=== PATIENT | male | born 1935 | race Caucasian/White ===

== ENCOUNTER 2019-01-27 07:38 | Observation (INO) | payer BC ==
[~2019-01-27] VITALS: Ht 166.4 cm; Wt 68.1 kg
[2019-01-27] VITALS (36 sets, daily range): BP systolic 101–143; BP diastolic 55–79; PULSE 46–69; RESP 11–18; Ht 166.4 cm; Wt 68.1 kg
[~2019-01-27 07:38] MED LIST: CIPROFLOXACIN 400 MG in D5W 200 ML IVPB SCH
[2019-01-27] MEDS ORDERED: TAMS-14 PO (08:25)
[2019-01-27] MEDS ORDERED: PROP40TA4 PO (08:26)
[2019-01-27] MEDS ORDERED: SERT25TA83 PO (08:26)
[2019-01-27] MEDS ORDERED: FINA5TAB4 PO (08:27)
[2019-01-27] MEDS ORDERED: CLON1TAB13 PO (08:27)
[2019-01-27] MEDS ORDERED: LORA10TA3 PO (08:28)
--- NOTE | 2019-01-27 10:59 | HPN ---
Date/Time of Note Date/Time of Note DATE: 01/27/19 TIME: 10:58 Interval H&P Admission Note Pt. seen H&P reviewed: No system changes KOFI TAI January 27, 2019 10:59
--- NOTE | 2019-01-27 11:24 | PREAC ---
Date/Time of Note Date/Time of Note DATE: 01/27/19 TIME: 11:23 Anesthesia Eval and Record Evaluation Time Pre-Procedure Interview DATE: 01/27/19 TIME: 11:23 Age 83 Sex male NPO: 8 hrs Preoperative diagnosis BPH Planned procedure TURP Past Medical History Past Medical History: Includes Cardio: HTN Surgery & Anesthesia Issues No known issue Meds Anticoagulation: No Beta Gary within 24 hr: Yes Reported Medications Loratadine* (Loratadine*) 10 Mg Tablet, 10 MG PO DAILY, #30 TAB 01/27/19 Finasteride* (Finasteride*) 5 Mg Tablet, 5 MG PO DAILY, TAB 01/27/19 Clonazepam* (Clonazepam*) 1 Mg Tablet, 1 MG PO DAILY PRN for ANXIETY, TAB 01/27/19 Sertraline Hcl* (Sertraline Hcl*) 25 Mg Tablet, 37.5 MG PO DAILY, #30 TAB 01/27/19 Propranolol Hcl* (Propranolol Hcl*) 40 Mg Tablet, 40 MG PO BID, TAB 01/27/19 Tamsulosin Hcl* (Flomax*) 0.4 Mg Cap.er.24h, 0.4 MG PO DAILY, CAP 01/27/19 Current Medications Ciprofloxacin/ Dextrose 200 ml @ 200 mls/hr PREOP IVPB ; Start 01/27/19 at 06:00; Stop 01/27/19 at 17:00 Meds reviewed: Yes Allergies Coded Allergies: No Known Allergy (Unverified , 01/27/19) Allergies Reviewed: Yes Labs/Studies Labs Reviewed: Reviewed by anesthesiologist test: N/A Pre-procedure Exam Airway: Adequate mouth opening Mallampati: Mallampati II Teeth: Normal Lung: Normal Heart: Normal ASA Physical Status ASA physical status: 3 Emergency: None Planned Anesthetic General/MAC: LMA Pre-operative Attestations Prior to commencing anesthesia and surgery, the patient was re-evaluated, there was verification of: *The patient's identity *The results of appropriate recent lab work and preoperative vital signs *The above evaluation not changing prior to induction *Anesthetic plan, risk benefits, alternative and complications discussed with patient/family; questions answered; patient/family understands, accepts and wishes to proceed. SIN BORRERO MD January 27, 2019 11:24
[2019-01-27] MEDS ORDERED: PROPOFOL 20 ML ONE (11:27)
[2019-01-27] MEDS ORDERED: CIPROFLOXACIN 400MG/D5W 200 ML ONE (11:27)
[2019-01-27] MEDS ORDERED: FENTAnyl 50 MCG/ML VIAL ONE ×2 (11:27→12:11)
[2019-01-27] MEDS ORDERED: ONDANSETRON 4 MG INJ IV PRN (13:00)
[2019-01-27] MEDS ORDERED: HYDROmorphONE 1 MG/5 ML IV SYRINGE IV PRN (13:00)
--- NOTE | 2019-01-27 13:10 | PAC ---
Date/Time of Note Date/Time of Note DATE: 01/27/19 TIME: 13:09 Post-Anesthesia Notes Post-Anesthesia Note Last documented vital signs VSS Activity: WNL Respiratory function: WNL Cardiovascular function: WNL Mental status: Baseline Pain reasonably controlled: Yes Hydration appropriate: Yes Nausea/Vomiting absent: Yes SIN BORRERO MD January 27, 2019 13:10
[2019-01-27] MEDS ORDERED: MAGNESIUM HYDROXIDE 30ML CUP PO PRN (14:00)
[2019-01-27] MEDS ORDERED: morphine 2 MG INJ IV PRN (14:00)
[2019-01-27] MEDS ORDERED: HYDROCODONE/APAP (5/325) TAB PO PRN (14:00)
--- NOTE | 2019-01-27 14:41 | CONS ---
Assessment/Plan Assessment/Plan Assessment/Plan (Daily) Assessment and plan: 83-year-old male status post TURP earlier today, prior history of BPH, hypertension. #Status post TURP: Again surgery occurred earlier today by urology team -Continue to follow-up postop care and recommendations by the primary urology team including antibiotics and pain control medications # HTN: Currently stable -Monitor, continue current medications # BPH: Again, status post TURP earlier today, see above We will continue to follow along with you. Consultation Date/Type/Reason Admit Date/Time January 27, 2019 at 13:33 Date/Time of Note DATE: 01/27/19 TIME: 14:39 Hx of Present Illness 83-year-old male past medical history of BPH, hypertension, prostate surgery in [place], who was brought in for elective procedure. Patient underwent TURP procedure by urology team earlier today. Presently patient denies any chest pain or shortness of breath, no nausea vomiting or diarrhea or constipation, no fevers or chills. Medicine team was asked to consult for continued medical management of this patient. Past Medical History Home Meds Reported Medications Loratadine* (Loratadine*) 10 Mg Tablet, 10 MG PO DAILY, #30 TAB 01/27/19 Finasteride* (Finasteride*) 5 Mg Tablet, 5 MG PO DAILY, TAB 01/27/19 Clonazepam* (Clonazepam*) 1 Mg Tablet, 1 MG PO DAILY PRN for ANXIETY, TAB 01/27/19 Sertraline Hcl* (Sertraline Hcl*) 25 Mg Tablet, 37.5 MG PO DAILY, #30 TAB 01/27/19 Propranolol Hcl* (Propranolol Hcl*) 40 Mg Tablet, 40 MG PO BID, TAB 01/27/19 Tamsulosin Hcl* (Flomax*) 0.4 Mg Cap.er.24h, 0.4 MG PO DAILY, CAP 01/27/19 Medications Current Medications Ciprofloxacin/ Dextrose 200 ml @ 200 mls/hr PREOP IVPB ; Start 01/27/19 at 06:00; Stop 01/27/19 at 17:00 Hydromorphone HCl (Dilaudid) 0.2 mg PACU PRN IV MILD PAIN 1-3; Start 01/27/19 at 13:00; Stop 01/27/19 at 17:00 Ondansetron HCl (Zofran Inj) 4 mg PACU ORDER PRN IV NAUSEA/VOMITING; Start 01/27/19 at 13:00; Stop 01/27/19 at 17:00 Dextrose/Sodium Chloride 1,000 ml @ 50 mls/hr Q20H IV ; Start 01/27/19 at 13:33 Acetaminophen/ Hydrocodone Bitart (Harman (5/325)) 1 tab Q4H PRN PO PAIN; Start 01/27/19 at 14:00; Status UNV Docusate Sodium (Colace) 100 mg BID PO ; Start 01/27/19 at 21:00 Magnesium Hydroxide (Milk Of Mag) 30 ml DAILY PRN PO CONSTIPATION; Start 01/27/19 at 14:00 Ciprofloxacin (Cipro) 500 mg BID@06,18 PO ; Start 01/27/19 at 18:00; Status UNV Morphine Sulfate (morphine SULFATE (PF)) 1 mg Q4H PRN IV PAIN LEVEL 4-6; Start 01/27/19 at 14:00; Status UNV Loratadine (Claritin) 10 mg ONCE ONCE PO ; Start 01/27/19 at 14:00; Stop 01/27/19 at 14:01; Status UNV Propranolol HCl (Inderal) 40 mg BID PO ; Start 01/27/19 at 21:00; Status UNV Clonazepam (Klonopin) 1 mg ONCE ONCE PO ; Start 01/27/19 at 14:00; Stop 01/27/19 at 14:01; Status UNV Sertraline HCl (Zoloft) 25 mg DAILY PO ; Start 01/28/19 at 09:00; Status UNV Finasteride (Proscar) 5 mg ONCE ONCE PO ; Start 01/27/19 at 14:00; Stop 01/27/19 at 14:01; Status UNV Tamsulosin HCl (Flomax) 0.4 mg HS PO ; Start 01/27/19 at 21:00; Status UNV Allergies: Coded Allergies: No Known Allergy (Unverified , 01/27/19) Past Surgical History Past Surgical Hx: other (Prostate surgery in [place]) Social History Alcohol Use: none Smoking Status: Never smoker Drug Use: none Exam/Review of Systems Exam Vitals Vital Signs Date Temp Pulse Resp B/P (MAP) Pulse Ox O2 O2 Flow FiO2 Time Delivery Rate 01/27/19 48 18 137/70 98 Room Air 13:49 (92) 5/22/19 98.8 13:09 Exam GENERAL: Lying in bed, no acute distress HEENT: PERRLA, EOMI NECK: Supple CARDIAC: Regular rate and rhythm, no rubs or gallops LUNGS: Clear bilaterally no wheezing ABDOMEN: Soft nontender, nondistended, no guarding, no rigidity or rebound. EXTREMITIES: No lower extremity edema bilaterally Results Result Diagram: 01/27/19 1358 01/27/19 1358 Results 24hrs Laboratory Tests Test 01/27/19 13:58 White Blood Count 4.2 L Red Blood Count 3.87 L Hemoglobin 11.2 L Hematocrit 34.9 L Mean Corpuscular Volume 90.2 Mean Corpuscular Hemoglobin 28.9 L Mean Corpuscular Hemoglobin Concent 32.1 Red Cell Distribution Width 13.7 Platelet Count 181 Mean Platelet Volume 9.2 Immature Granulocytes % 0.200 Neutrophils % 64.1 Lymphocytes % 22.0 Monocytes % 12.2 H Eosinophils % 1.0 Basophils % 0.5 Nucleated Red Blood Cells % 0.0 Immature Granulocytes # 0.010 Neutrophils # 2.7 Lymphocytes # 0.9 Monocytes # 0.5 Eosinophils # 0.0 Basophils # 0.0 Nucleated Red Blood Cells # 0.0 CBC Results Faxed/Phoned 1 *H Sodium Level 135 Potassium Level 4.3 Chloride Level 106 Carbon Dioxide Level 23 Anion Gap 6 Blood Urea Nitrogen 10 Creatinine 0.63 Est Glomerular Filtrat Rate mL/min Glucose Level 78 Calcium Level 7.9 L Medications Medication Current Medications Ciprofloxacin/ Dextrose 200 ml @ 200 mls/hr PREOP IVPB ; Start 01/27/19 at 06:00; Stop 01/27/19 at 17:00 Hydromorphone HCl (Dilaudid) 0.2 mg PACU PRN IV MILD PAIN 1-3; Start 01/27/19 at 13:00; Stop 01/27/19 at 17:00 Ondansetron HCl (Zofran Inj) 4 mg PACU ORDER PRN IV NAUSEA/VOMITING; Start 01/07 10/27 at 13:00; Stop 01/27/19 at 17:00 Dextrose/Sodium Chloride 1,000 ml @ 50 mls/hr Q20H IV ; Start 01/27/19 at 13:33 Acetaminophen/ Hydrocodone Bitart (Harman (5/325)) 1 tab Q4H PRN PO PAIN; Start 01/27/19 at 14:00; Status UNV Docusate Sodium (Colace) 100 mg BID PO ; Start 01/27/19 at 21:00 Magnesium Hydroxide (Milk Of Mag) 30 ml DAILY PRN PO CONSTIPATION; Start 01/27/19 at 14:00 Ciprofloxacin (Cipro) 500 mg BID@06,18 PO ; Start 01/27/19 at 18:00; Status UNV Morphine Sulfate (morphine SULFATE (PF)) 1 mg Q4H PRN IV PAIN LEVEL 4-6; Start 01/27/19 at 14:00; Status UNV Loratadine (Claritin) 10 mg ONCE ONCE PO ; Start 01/27/19 at 14:00; Stop 01/27/19 at 14:01; Status UNV Propranolol HCl (Inderal) 40 mg BID PO ; Start 01/27/19 at 21:00; Status UNV Clonazepam (Klonopin) 1 mg ONCE ONCE PO ; Start 01/27/19 at 14:00; Stop 01/27/19 at 14:01; Status UNV Sertraline HCl (Zoloft) 25 mg DAILY PO ; Start 01/28/19 at 09:00; Status UNV Finasteride (Proscar) 5 mg ONCE ONCE PO ; Start 01/27/19 at 14:00; Stop 01/27/19 at 14:01; Status UNV Tamsulosin HCl (Flomax) 0.4 mg HS PO ; Start 01/27/19 at 21:00; Status UNV ROBBY ARENAS January 27, 2019 14:41
[2019-01-27] MEDS ORDERED: LORATADINE 10 MG TAB PO ONE (15:30)
[2019-01-27] MEDS ORDERED: FINASTERIDE 5 MG TAB PO ONE (15:30)
[2019-01-27] MEDS ORDERED: clonAZEPAM 0.5 MG TAB PO ONE (15:30)
[2019-01-27] MEDS: DEXTROSE 5%-0.45% NACL 1,000 ML IV SCH (16:05)
--- NOTE | 2019-01-27 16:49 | OPR ---
DATE OF OPERATION: 01/27/2019 PREOPERATIVE DIAGNOSES: Bladder neck contracture post urethral stricture, bladder outlet obstruction , status post laser prostatectomy. POSTOPERATIVE DIAGNOSES: Bladder neck contracture post urethral stricture, bladder outlet obstructio n, status post laser prostatectomy. PROCEDURES: Cystoscopy, transurethral resection of prostate, dilation of urethral stricture, transur ethral resection of bladder neck contracture. SURGEON: Alexandro Becerra MD ANESTHESIA: General. COMPLICATIONS: None. SPECIMEN: Prostatic chips and bladder neck contracture/urethral stricture. ESTIMATED BLOOD LOSS: 50 mL. DRAINS: A 22-[place] 3-way Lindsey catheter. PROCEDURE IN DETAILS: The patient was brought into the operating room and placed on the operating ro om table in the supine lithotomy position. He was prepped and draped in the usual fashion after anes thesia was induced. A timeout was undertaken. Appropriate pressure points were padded. He received preoperative antibiotic therapy and sequential compression devices were applied. Rigid cystoscopy w as undertaken with rigid cystoscope. No abnormalities of the anterior urethra could be appreciated. In the posterior urethra distal to the external sphincteric mechanism, a dense urethral stricture wa s identified. The posterior aspect of the urethra is very rigid in nature. The verumontanum was poo rly identified and there are no good landmarks in the posterior aspect of the urethra. Two false pas sages were appreciated as well as multiple dilated blood vessels within the lateral lobes of the pros augustine. The lateral lobes appeared to be obstructing in nature. Additionally, there was a bladder nec k contracture. The entire posterior urethra once again was noted to be very rigid and fixed in posit ion. The rigid cystoscope was traversed gently through the prostatic fossa into the bladder. The bl adder was inspected in a systematic fashion and was markedly dilated with high grade amount of trabec ulation. Essentially, the bladder lining is within normal limits due to bladder outlet obstruction. The ureteral orifices were unable to be identified. A wire was placed into the bladder which allowe d for a pathway to traverse with the resectoscope. The Olympus bipolar resectoscope was inserted int o the urethra and gently brought into the posterior urethra. The scar tissue at the level distal to the external sphincteric mechanism and encompassing the external sphincteric mechanism was dilated wi th the resectoscope and attention was first drawn to the level of the bladder neck where bladder neck contracture was identified and subsequently resected. Prior to this resection, the wire was removed . Pinpoint hemostasis was obtained. Obstructing lateral lobes were then appreciated and noted to be very rigid in nature. Resection was undertaken from the level of the bladder neck to the mid portio n of what was deemed to be the prostatic fossa. The resection was taken down to the surgical capsule with pinpoint hemostasis being obtained. Limited removal of tissue at the most apex of the prostate was then undertaken as I cannot fully visualize a verumontanum. Only tissue that was obstructing in nature was removed. Once again, marked amount of scar tissue could be appreciated. Pinpoint hemost asis was obtained. The chips were removed with an Primedic evacuator. A wire was repositioned back int o the bladder which then allowed for a 22-[place] 3-way Lindsey catheter to be inserted. The efflux was noted to be clear. He was transferred to recovery room in stable condition. Further intervention e valuation pending clinical course and results of above. Dictated By: ALEXANDRO VALERIO/GIN Conf#: [id number] DID#: [id number]
[2019-01-27] MEDS: CIPROFLOXACIN 500 MG TAB PO SCH (18:48)
[2019-01-27] MEDS ORDERED: TAMSULOSIN (SR) 0.4 MG CAP PO SCH (21:00)
[2019-01-27] MEDS: DOCUSATE SODIUM 100 MG CAP PO SCH (21:21)
[2019-01-27] MEDS: PROPRANOLOL 40 MG TAB PO SCH (21:23)
[2019-01-28 02:15] VITALS: BP 97/60; PULSE 67; RESP 16
[2019-01-28] MEDS: CIPROFLOXACIN 500 MG TAB PO SCH (05:28)
[2019-01-28 07:55] VITALS: BP 120/58; PULSE 60; RESP 16
--- NOTE | 2019-01-28 08:42 | PDOCDIS ---
Discharge Instructions DIAGNOSIS Discharge Diagnosis Posterior urethral stricture, bladder neck contracture, BPH CONDITION [id number] Patient Condition: [address] Good HOME CARE INSTRUCTIONS: Robert Diet Instructions: Екатерина Regular ACTIVITY: Robert Activity Restrictions: [id number] Slowly Increase Activity [id number] Bathing Restrictions: [id number] Shower FOLLOW UP/APPOINTMENTS Follow-up Plan Follow up in office next week for removal of Lindsey Call for date and time REFERRALS Robert Referring Provider: KOFI Jurado OTHER ORDERS: Other Orders: Lindsey to leg bag Hydration with water Tylenol for p[ain Avoid aspirin and ibuprofen until Lindsey removed ay have blood in tube Light activity Keep BM soft No straining KOFI TAI January 28, 2019 08:42
[2019-01-28] MEDS ORDERED: SERTRALINE 50 MG TAB PO SCH (09:00)
[2019-01-28] MEDS: DOCUSATE SODIUM 100 MG CAP PO SCH (09:12)
[2019-01-28] MEDS: PROPRANOLOL 40 MG TAB PO SCH (09:13)
[2019-01-28] MEDS: DEXTROSE 5%-0.45% NACL 1,000 ML IV SCH (09:33)
--- NOTE | 2019-01-28 12:18 | DS ---
DATE OF ADMISSION: 01/27/2019 DATE OF DISCHARGE: 01/27/2019 Osmani is doing very well postop day #1 status post transurethral resection of prostate with resecti on of bladder neck contracture and extensive scar tissue in the posterior urethra. The evening was u neventful. There have been no difficulties with the slow continuous bladder irrigation of which is c rystal clear this morning. This morning he is sitting in bed comfortably and has been eating. There has been no nausea or vomiting. He is accompanied by his daughter. PHYSICAL EXAMINATION: VITAL SIGNS: Blood pressure 120/58, heart rate 60, temperature 98.0. ABDOMEN: Soft, nondistended, nontender. No palpable masses. Flank, no CVA tenderness, no masses. GENITALIA: Normal shaft of penis, normal meatus. Continuous bladder irrigation was discontinued and the efflux of urine remained light yellow to clear. White blood count 4.2, hemoglobin 11.2. IMPRESSION: Doing very well status post transurethral resection of prostate for dense scar tissue fo rmation, status post laser prostatectomy in [place]. PLAN: 1. Discharge to home with Lindsey to leg bag. 2. Continue all home medications including: a) Loratadine 10 mg p.o. daily. b) Tamsulosin 0.4 mg p.o. daily. c) Propranolol 40 mg p.o. b.i.d. d) Clonazepam 1 mg p.o. daily p.r.n. e) Sertraline 25 mg p.o. daily. f) Finasteride 5 mg p.o. daily. 3. Follow up with PCP. 4. Follow up next week for a trial of void. 5. Light activity. 6. Routine instructions discussed with patient and daughter via bead forming machine set up operator. All questions have been answered. Dictated By: KOFI VALERIO/NTS Conf#: [id number] DID#: [id number]
== END 2019-01-28 13:52 | disposition home or self-care (01) ==
LOC: SDS 07:38 → REC 13:33 → MS1 15:29
PROVIDERS: ADMIT Urology; ATTEND Urology
DX: N40.1 Benign prostatic hyperplasia with lower urinary tract symptoms (principal); N13.8 Other obstructive and reflux uropathy
CPT/HCPCS: 52500; 52601; 80048; 85025; 88307; J0744; J3010; J7042; Z7500; Z7512; Z7610; G0378